=== PATIENT | female | born 1970 | race Asian ===

== ENCOUNTER 2019-03-19 09:30 | Day surgery (SDC) | payer OTHER ==
[~2019-03-19] VITALS: Ht 152.4 cm; Wt 56.0 kg
[~2019-03-19 09:30] MED LIST: FAMO-96 PO
[2019-03-19 10:16] VITALS: Ht 152.4 cm; Wt 56.0 kg
[2019-03-19 10:45] VITALS: BP 107/71; PULSE 64; RESP 16
[2019-03-19] MEDS ORDERED: MIDAZOLAM 1 MG/ML 2 ML INJ ONE ×2 (12:14→12:15)
[2019-03-19] MEDS ORDERED: FENTAnyl 50 MCG/ML VIAL ONE (12:15)
[2019-03-19 12:32] VITALS: BP 105/71; RESP 12
== END 2019-03-19 15:19 | disposition home or self-care (01) ==
LOC: GIL 09:30
PROVIDERS: ATTEND Internal Medicine Gastroenterology
DX: Z12.11 Encounter for screening for malignant neoplasm of colon (principal); K64.8 Other hemorrhoids; K21.9 Gastro-esophageal reflux disease without esophagitis
CPT/HCPCS: 84703; 88305; J2250; J3010